=== PATIENT | female | born 1950 | race African-American/Black ===

== ENCOUNTER 2017-07-30 19:33 | Emergency (ER) | payer MEDICAID ==
[~2017-07-30] VITALS: Ht 172.7 cm; Wt 69.0 kg
[~2017-07-30 19:33] MED LIST: VICODIN
[2017-07-31] MEDS ORDERED: ONDANSETRON 4MG ODT PO ONE (03:45)
[2017-07-31] MEDS ORDERED: KETOROLAC 30MG/ML VIAL IM ONE (03:45)
[2017-07-31 06:31] VITALS: BP 143/83
== END 2017-07-31 08:10 | disposition home or self-care (01) ==
LOC: ER 19:35
DX: R55 Syncope and collapse (principal); R11.0 Nausea; J45.909 Unspecified asthma, uncomplicated; I10 Essential (primary) hypertension; M41.9 Scoliosis, unspecified; Z88.0 Allergy status to penicillin
CPT/HCPCS: 70450; 96372; 99284; J1885; Q0162

== ENCOUNTER 2018-05-01 17:29 | Emergency (ER) | payer OTHER, MEDICAID ==
[~2018-05-01] VITALS: Ht 165.1 cm; Wt 83.0 kg
[2018-05-01] MEDS ORDERED: KETOROLAC 60MG/2ML VIAL IM ONE (18:30)
[2018-05-01] MEDS ORDERED: TRAMADOL 50MG TABLET PO ONE (20:30)
[2018-05-01 22:49] VITALS: BP 151/105
== END 2018-05-01 22:52 | disposition home or self-care (01) ==
LOC: ER 17:29
DX: M79.673 Pain in unspecified foot (principal); I10 Essential (primary) hypertension; J45.909 Unspecified asthma, uncomplicated; M41.9 Scoliosis, unspecified; Z98.51 Tubal ligation status; Z88.0 Allergy status to penicillin
CPT/HCPCS: 73630; 96372; 99284; J1885

== ENCOUNTER 2023-06-17 21:47 | Emergency (ER) | payer BC, MEDICAID ==
[~2023-06-17] VITALS: Ht 167.6 cm; Wt 95.0 kg
[2023-06-17 22:06] VITALS: O2SAT 98
[2023-06-17] MEDS ORDERED: ONDANSETRON 4MG ODT PO STA (23:11)
[2023-06-17] MEDS ORDERED: ASPIRIN 81MG TABLET PO ONE (23:15)
[2023-06-17 23:52] LABS: BASOPHILS % 0.9 % (0.0-2.0); EOSINOPHILS % 2.7 % (0.0-5.0); HEMATOCRIT. 37.1 % (36.0-48.0); HEMOGLOBIN. 11.8 g/dL (12.0-16.0); LYMPHOCYTES % 35.8 % (20.0-50.0); MEAN CORPUSCULAR HEMOGLOBIN 28.4 pg (28.0-32.0); MEAN CORPUSCULAR HGB CONC 31.8 g/dL (31.0-37.0); MEAN CORPUSCULAR VOLUME 89.2 fL (81.0-99.0); MEAN PLATELET VOLUME 7.8 fl (7.4-10.4); MONOCYTES % 13.4 % (2.0-8.0); NEUTROPHILS % 47.2 % (40.0-76.0); PLATELET 151 x1000/uL (130-400); RED BLOOD CELL COUNT 4.16 mill/uL (4.2-5.4); RED CELL DISTRIBUTION WIDTH 14.9 % (11.6-14.6); WHITE BLOOD COUNT 3.9 x1000/uL (4.5-11.0)
[2023-06-18 00:09] LABS: ALANINE AMINOTRANSFERASE 28 IU/L (10-49); ALBUMIN 4.1 g/dL (3.2-4.8); ASPARTATE AMINOTRANSFERASE 45 IU/L (<34); BILIRUBIN TOTAL 0.4 mg/dL (0.1-1.0); CALCIUM 10.5 mg/dL (8.7-10.4); CARBON DIOXIDE 27 mEq/L (21-32); CHLORIDE 110 mEq/L (98-107); CREATININE 1.2 mg/dL (0.6-1.0); GLUCOSE 120 mg/dL (70-105); POTASSIUM 4.2 mEq/L (3.5-5.1); PROTEIN TOTAL 7.3 g/dL (6.0-8.3); SODIUM 142 mEq/L (136-145); TROPONIN I HIGH SENSITIVITY 18 ng/L (3.0-34); UREA NITROGEN BLOOD 15 mg/dL (9-23)
[2023-06-18 00:44] LABS: CLARITY URINE CLEAR (CLEAR); COLOR URINE YELLOW (YELLOW); PROTEIN URINE NEGATIVE (NEGATIVE); SPECIFIC GRAVITY URINE 1.023 (1.005-1.030)
[2023-06-18 00:45] LABS: GLUCOSE URINE NEGATIVE (NEGATIVE); KETONES URINE NEGATIVE (NEGATIVE); LEUKOCYTE ESTERASE URINE NEGATIVE (NEGATIVE); NITRITE URINE NEGATIVE (NEGATIVE); OCCULT BLOOD URINE NEGATIVE (NEGATIVE); UROBILINOGEN URINE 1 E.U./dL (0.2-1.0)
[2023-06-18 02:25] LABS: TROPONIN I HIGH SENSITIVITY 16 ng/L (3.0-34)
[2023-06-18 08:28] VITALS: BP 141/78; PULSE 90; RESP 16; TEMP 97.9
== END 2023-06-18 08:38 | disposition short-term general hospital (02) ==
LOC: ER 21:47 → EDBEDREQ 06-18 05:05 → ER 06-18 08:38 → CANBEDREQ 06-18 10:43
DX: R07.9 Chest pain, unspecified (principal); I10 Essential (primary) hypertension
CPT/HCPCS: 99285; 71045; 80053; 81003; 83880; 83690; 85025; 84484 ×2; 36415 ×2; 93005; Q0162